=== PATIENT | male | born 1970 | race Two or more races ===

== ENCOUNTER → 2018-03-04 | Day surgery (SDC) | payer OTHER ==
[2018-03-04 07:53] LABS: Basophils # (auto) 0.1 uL; Eosinophils # (auto) 0.2 uL; Hematocrit 41.9 % (41.0-53.0); Lymphocytes # (auto) 1.4 uL; Monocytes # (auto) 0.6 uL; White Blood Cell 5.5 10^3/uL (4.4-10.8)
[2018-03-04 07:56] LABS: Eosinophils % (auto) 3.3 % (0.0-7.0); Hemoglobin 13.6 g/dL (13.5-17.5); Lymphocytes % (auto) 25.7 % (10.0-50.0); Mean Corpuscular Hgb Conc. 32.5 g/dL (32.0-36.0); Mean Corpuscular Volume 79.9 fL (80.0-100.0); Monocytes % (auto) 10.3 % (0.0-12.0); Neutrophils # (auto) 3.3 uL; Neutrophils % (auto) 59.7 % (37.0-80.0); Nucleated Red Blood Cells % 0.1 %; Platelet Count (auto) 238 10^3/uL (140-450); Red Blood Cells 5.25 10^6/uL (4.5-5.90); Red Cell Distribution Width 15.8 % (11.8-14.3)
[2018-03-04 07:58] LABS: Anion Gap 8 (5-15); BUN/Creatinine Ratio 19.8; Blood Urea Nitrogen 16 mg/dL (7-18); Carbon Dioxide 23 mmol/L (21-32); Chloride 110 mmol/L (98-107); GFR African American 132 mL/min; GFR Non-African American 109 mL/min; Glucose 84 mg/dL (74-106); Potassium 4.1 mmol/L (3.5-5.1); Sodium 141 mmol/L (136-145)
[2018-03-04 08:34] LABS: INR 0.98 (0.9-1.15); Partial Thromboplastin Time 30.1 sec (23.78-33.04); Prothrombin Time 10.5 sec (9.27-12.13)
== END ==
LOC: SUR 06:30
PROVIDERS: ATTEND Urology
DX: R97.20 Elevated prostate specific antigen [PSA] (principal); Z53.8 Procedure and treatment not carried out for other reasons
CPT/HCPCS: 36415; 71045; 80048; 85025; 85610; 85730

== ENCOUNTER → 2018-05-05 | Outpatient (CLI) | payer OTHER ==
[~2018-05-05] MED LIST: LISI40TA PO; OMEP20TA PO; TERA2CAP45 PO
[2018-05-05 06:56] LABS: Potassium 4.2 mmol/L (3.5-5.1)
[2018-05-05 06:57] LABS: Albumin 3.5 g/dL (3.4-5.0); BUN/Creatinine Ratio 14.4; Bilirubin, Total 0.2 mg/dL (0.2-1.0); Calcium 8.1 mg/dL (8.5-10.1); Prothrombin Time 10.4 sec (9.27-12.13); Total Protein 7.3 g/dL (6.4-8.2)
[2018-05-05 06:58] LABS: INR 0.97 (0.9-1.15); Partial Thromboplastin Time 30.6 sec (23.78-33.04)
[2018-05-05 07:00] LABS: Basophils # (auto) 0.1 uL; Basophils % (auto) 0.9 % (0.0-2.0); Eosinophils # (auto) 0.3 uL; Eosinophils % (auto) 3.6 % (0.0-7.0); Hematocrit 43.5 % (41.0-53.0); Hemoglobin 14.1 g/dL (13.5-17.5); Lymphocytes # (auto) 1.8 uL; Lymphocytes % (auto) 23.3 % (10.0-50.0); Mean Corpuscular Hemoglobin 25.8 pg (28.0-32.0); Mean Corpuscular Hgb Conc. 32.5 g/dL (32.0-36.0); Mean Corpuscular Volume 79.4 fL (80.0-100.0); Monocytes # (auto) 0.9 uL; Monocytes % (auto) 11.7 % (0.0-12.0); Neutrophils # (auto) 4.7 uL; Neutrophils % (auto) 60.5 % (37.0-80.0); Nucleated Red Blood Cells % 0.3 %; Platelet Count (auto) 294 10^3/uL (140-450); Red Blood Cells 5.48 10^6/uL (4.5-5.90); Red Cell Distribution Width 15.4 % (11.8-14.3); White Blood Cell 7.8 10^3/uL (4.4-10.8)
== END | disposition home or self-care (01) ==
LOC: LAB 06:49
DX: N42.9 Disorder of prostate, unspecified (principal)
CPT/HCPCS: 36415; 80053; 85025; 85610; 85730

== ENCOUNTER 2018-05-06 06:55 | Day surgery (SDC) | payer OTHER ==
[2018-05-06] MEDS ORDERED: CIPROFLOXACIN 400MG/200ML 200 ML IV ONE (07:30)
[2018-05-06] MEDS ORDERED: GENTAMICIN SULFATE 80 MG in D5W 5% 100 ML IV ONE (07:45)
[2018-05-06] MEDS ORDERED: GENTAMICIN SULF 80 MG/2 ML VIAL ONE (08:09)
[2018-05-06] MEDS ORDERED: MIDAZOLAM HCL 1MG/1ML-2 ML VIAL ONE ×2 (08:43→08:57)
[2018-05-06] MEDS ORDERED: fentaNYL CITRATE 100 MCG/2 ML VL ONE (08:43)
[2018-05-06] MEDS ORDERED: hydrALAZINE HCL 20 MG/ML VL IV PRN (09:45)
[2018-05-06] MEDS ORDERED: ePHEDrine SULFATE 50 MG/ML AMP IV PRN (09:45)
[2018-05-06] MEDS ORDERED: ONDANSETRON HCL 4 MG/2 ML VIAL IV ONE (09:45)
[2018-05-06] MEDS ORDERED: fentaNYL CITRATE 100 MCG/2 ML VL IV ONE (10:00)
[2018-05-06 10:32] VITALS: BP 130/77
== END 2018-05-06 10:39 | disposition home or self-care (01) ==
LOC: SUR 06:55
PROVIDERS: ATTEND Urology
DX: N40.1 Benign prostatic hyperplasia with lower urinary tract symptoms (principal); I10 Essential (primary) hypertension; K21.9 Gastro-esophageal reflux disease without esophagitis; E66.9 Obesity, unspecified
CPT/HCPCS: 52000; 55700; 76942; C1769; J0744; J1580; J2250; J3010; J7030; J7060

== ENCOUNTER 2018-05-10 20:15 | Inpatient (IN) | payer OTHER ==
[~2018-05-10] VITALS: Ht 188 cm; Wt 149.3 kg
[2018-05-10 21:24] LABS: Basophils # (auto) 0 uL; Basophils % (auto) 0.4 % (0.0-2.0); Eosinophils # (auto) 0 uL; Hemoglobin 13.6 g/dL (13.5-17.5); Lymphocytes # (auto) 0.4 uL; Mean Corpuscular Hemoglobin 25.8 pg (28.0-32.0); Mean Corpuscular Hgb Conc. 32.7 g/dL (32.0-36.0); Mean Corpuscular Volume 78.8 fL (80.0-100.0); Monocytes # (auto) 0.3 uL; Neutrophils % (auto) 87.5 % (37.0-80.0)
[2018-05-10 21:26] LABS: Hematocrit 41.7 % (41.0-53.0); Lymphocytes % (auto) 7.1 % (10.0-50.0); Neutrophils # (auto) 5.3 uL; Platelet Count (auto) 171 10^3/uL (140-450); Red Blood Cells 5.29 10^6/uL (4.5-5.90); Red Cell Distribution Width 15.2 % (11.8-14.3); White Blood Cell 6.1 10^3/uL (4.4-10.8)
[2018-05-10 21:33] LABS: Albumin 2.9 g/dL (3.4-5.0); BUN/Creatinine Ratio 15.8; Calcium 7.8 mg/dL (8.5-10.1); Potassium 3.4 mmol/L (3.5-5.1)
[2018-05-10 21:36] LABS: Bilirubin, Total 0.8 mg/dL (0.2-1.0); Total Protein 6.9 g/dL (6.4-8.2)
[2018-05-11 02:39] LABS: Urine Bacteria MOD /hpf (None Seen); Urine Blood 2+ /uL (Negative); Urine Specific Gravity 1.015 (1.001-1.035); Urine WBC 89 /hpf (0 - 3); Urine WBC Clumps PRESENT /hpf (None Seen)
[2018-05-11 02:40] LABS: Urine Mucus FEW (None Seen)
[2018-05-11] MEDS ORDERED: TERA2CAP45 PO (02:58)
[2018-05-11] MEDS ORDERED: LISI40TA PO (02:58)
[2018-05-11] MEDS ORDERED: CIPROFLOXACIN 400MG/200ML 200 ML IV ONE (03:00)
[2018-05-11] MEDS ORDERED: IBUPROFEN 600 MG TAB PO ONE (03:30)
[2018-05-11] MEDS ORDERED: ACETAMINOPHEN 325 MG TAB PO ONE (03:30)
[2018-05-11] MEDS ORDERED: SODIUM CHLORIDE 0.9% 2,000 ML IV ONE (04:00)
[2018-05-11] MEDS ORDERED: OMEP20TA PO (08:27)
[2018-05-11] MEDS: CLINDAMYCIN 600MG IV 50 ML IV SCH ×3 (08:45→21:21)
[2018-05-11] MEDS: LISINOPRIL 20 MG TAB PO SCH (10:00)
[2018-05-11] MEDS: PANTOPRAZOLE 40 MG/10 ML VIAL IV SCH (10:00)
[2018-05-11] MEDS: LEVOFLOXACIN 500MG 100 ML IV SCH (10:00)
[2018-05-11 13:15] VITALS: BP 120/81
[2018-05-11 13:30] VITALS: BP 120/81
[2018-05-11 16:00] VITALS: BP 138/91
[2018-05-11] MEDS ORDERED: ACETAMINOPHEN 325 MG TAB PO PRN (21:00)
[2018-05-11] MEDS: HYDROcodone-ACET 10/325MG TAB PO PRN (21:22)
[2018-05-11 22:00] VITALS: BP 142/78
[2018-05-11] MEDS: TERAZOSIN HCL 1 MG CAP PO SCH (22:00)
[2018-05-12 05:00] VITALS: BP 140/83
[2018-05-12] MEDS: TERAZOSIN HCL 1 MG CAP PO SCH ×2 (05:00→22:00)
[2018-05-12] MEDS: CLINDAMYCIN 600MG IV 50 ML IV SCH ×2 (06:06→14:00)
[2018-05-12] MEDS: HYDROcodone-ACET 10/325MG TAB PO PRN ×3 (06:06→21:00)
[2018-05-12 09:00] VITALS: BP 107/68
[2018-05-12] MEDS: LISINOPRIL 20 MG TAB PO SCH (09:41)
[2018-05-12] MEDS: PANTOPRAZOLE 40 MG/10 ML VIAL IV SCH (09:41)
[2018-05-12] MEDS: LEVOFLOXACIN 500MG 100 ML IV SCH (09:41)
[2018-05-12 13:00] VITALS: BP 103/69
[2018-05-12] MEDS: D5W/SOD CHL 0.45%/KCL 20MEQ 1,000 ML IV SCH (13:39)
[2018-05-12 16:53] VITALS: BP 100/74
[2018-05-13] MEDS: D5W/SOD CHL 0.45%/KCL 20MEQ 1,000 ML IV SCH ×4 (02:39→09:24)
[2018-05-13] MEDS: CLINDAMYCIN 600MG IV 50 ML IV SCH ×5 (02:40→22:00)
[2018-05-13 05:20] VITALS: BP 142/99
[2018-05-13 08:30] VITALS: BP 115/75
[2018-05-13] MEDS: LISINOPRIL 20 MG TAB PO SCH (09:24)
[2018-05-13] MEDS: LEVOFLOXACIN 500MG 100 ML IV SCH (09:24)
[2018-05-13] MEDS: PANTOPRAZOLE 40 MG/10 ML VIAL IV SCH (09:24)
[2018-05-13 12:48] VITALS: BP 120/78
[2018-05-13 16:42] VITALS: BP 127/74
[2018-05-13] MEDS: HYDROcodone-ACET 10/325MG TAB PO PRN ×2 (17:07→21:19)
[2018-05-13 20:00] VITALS: BP 137/79
[2018-05-13] MEDS: TERAZOSIN HCL 1 MG CAP PO SCH (21:19)
[2018-05-13 21:55] VITALS: BP 137/79
[2018-05-14 04:56] VITALS: BP 135/88
[2018-05-14] MEDS: CLINDAMYCIN 600MG IV 50 ML IV SCH ×3 (05:49→13:10)
[2018-05-14] MEDS: D5W/SOD CHL 0.45%/KCL 20MEQ 1,000 ML IV SCH ×2 (05:54→15:00)
[2018-05-14 08:30] VITALS: BP 120/74
[2018-05-14] MEDS: PANTOPRAZOLE 40 MG/10 ML VIAL IV SCH (10:36)
[2018-05-14] MEDS: LEVOFLOXACIN 500MG 100 ML IV SCH (10:36)
[2018-05-14] MEDS: LISINOPRIL 20 MG TAB PO SCH (10:37)
[2018-05-14 12:30] VITALS: BP 138/88
[2018-05-14 13:49] VITALS: BP 138/88
[2018-05-14 13:54] VITALS: BP 138/88
== END 2018-05-14 16:40 | DRG 872 ==
LOC: ER 20:15 → EDBD 20:15 → EEVIPCON 20:15 → OVERFLOW 20:16 → EAST 05-11 13:14
PROVIDERS: ADMIT Internal Medicine; ATTEND Internal Medicine
DX: A41.9 Sepsis, unspecified organism (principal); N39.0 Urinary tract infection, site not specified; N41.9 Inflammatory disease of prostate, unspecified; E86.0 Dehydration; I10 Essential (primary) hypertension; K21.9 Gastro-esophageal reflux disease without esophagitis; F17.210 Nicotine dependence, cigarettes, uncomplicated
CPT/HCPCS: 36415; 80053; 81001; 84154; 85025; 87040; 87081; 87086; 96374; C9113; J1956; J3490